=== PATIENT | male | born 1960 | race Caucasian/White ===

== ENCOUNTER 2018-11-07 14:53 | Emergency (ER) | payer OTHER ==
--- NOTE | 2018-11-07 15:00 | EDPHY ---
H & P Stated Complaint: SOB X 1 MONTH MILD 2/10 CHEST DISCOMFORT MID STERNAL TODAY Time Seen by Provider: 11/07/18 15:00 - Personal History Current Tetanus Diphtheria and Acellular Pertussis (TDAP): Yes - Medical/Surgical History Hx Asthma: No Hx Chronic Respiratory Disease: No Hx Diabetes: No Hx Cardiac Disease: No Hx Renal Disease: No Hx Cirrhosis: No Hx Alcoholism: No Hx HIV/AIDS: No Hx Splenectomy or Spleen Trauma: No Other PMH: Knee and hip surgery - Social History Smoking Status: Never smoked Constitutional: Initial Vital Signs Temperature (C) 36.7 C 11/07/18 14:56 Heart Rate 63 11/07/18 14:56 Respiratory Rate 18 11/07/18 14:56 Blood Pressure 140/86 H 11/07/18 14:56 O2 Sat (%) 92 11/07/18 14:56 O2 Delivery Mode Room Air Allergies/Adverse Reactions: No Known Allergies Allergy (Verified 11/07/18 14:54) Home Medications: Medication Instructions Recorded Lipitor 11/07/18 Medical Decision Making - Diagnostics Imaging Results: Imaging Impressions Chest X-Ray 11/07/18 15:07 Impression: No acute cardiopulmonary process. Imaging: I viewed and interpreted images myself ED Course/Re-evaluation: CHIEF COMPLAINT: Chest pain and shortness of breath HISTORY OF PRESENT ILLNESS: The patient is a 58 y/o male complaining of intermittent chest pain and shortness of breath today. For the last 20 years he has had similar episodes. The last episode of these symptoms occurred 1 month ago. These symptoms occur primarily before he goes to bed, but also occur while he is walking to work. Today he developed the "fleeting chest pain" that is briefly sharp in nature. Due to the new symptoms, he decided to present to the emergency department. No fever, headache, body aches, lightheadedness, heart palpitations, cough, abdominal pain, urinary or bowel complaints, numbness, paresthesias. He does see Dr. Manning, agricultural extension agent, and had a calcium score in September 2017 that was in the 10th percentile. Due to this calcium score he was placed on Lipitor prophylactically and is seeing him again in November 2015. REVIEW OF SYSTEMS: A comprehensive 10 system review of systems is otherwise negative aside from elements mentioned in the history of present illness and medical decision making. PHYSICAL EXAM: HR, BP, O2 Sat, RR. Temp noted General Appearance: Alert, well hydrated, appropriate, and non-toxic appearing. Head: Atraumatic without scalp tenderness or obvious injury Eyes: Pupils equal, round, reactive to light and accommodation, EOMI, no trauma , no injection. Ears: Clear bilaterally, no perforation, normal landmarks Nose: Atraumatic, no rhinorrhea, clear. Throat: There is no erythema or exudates, no lesions, normal tonsils, mucus membranes moist. Neck: Supple, 2+ carotid upstroke, nontender, no lymphadenopathy. Respiratory: No retractions, no distress, no wheezes, and no accessory muscle use. Lungs are clear to auscultation bilaterally. Cardiovascular: Regular rate and rhythm, no murmurs, rubs, or gallops. Bilateral carotid, radial, dorsalis pedis, and posterior tibial pulses intact. Good capillary refill all extremities. Gastrointestinal: Abdomen is soft, nontender, non-distended, no masses, no rebound, no guarding, no peritoneal signs. Musculoskeletal: Normal active ROM of all extremities, atraumatic. Neurological: Alert, appropriate, and interactive. The patient has normal DTRs and non-focal cranial nerves, motor, sensory, and cerebellar exam. Skin: No rashes, good turgor, no nodules on palpation. Past medical history: Denies Past surgical history: Hip and shoulder surgery Family history: Mother had angina in late 30's and pulmonary fibrosis, father had arteriole sclerosis and hear valves. Social history: Employed DIAGNOSTICS/PROCEDURES/CRITICAL CARE TIME: EKG: The 12 lead EKG was interpreted by myself as sinus rhythm with a rate of 62. See hard copy and/or "tracemaster" electronic copy for interpretation. Chest x-ray: Negative DIFFERENTIAL DIAGNOSIS: The differential diagnosis for the patient's chest pain included but was not limited to myocardial ischemia, pulmonary embolus, chest wall pain, pleural inflammation, and pulmonary infectious causes. The differential diagnosis for the patient's shortness of breath and hypoxemia included but was not limited to pneumonia, myocardial infarction, acute mountain sickness, high altitude pulmonary edema, congestive heart failure, and pulmonary embolus. MEDICAL DECISION MAKING: The patient is a 58 y/o male presenting with intermittent chest pain and shortness of breath today. The last episode of these symptoms occurred 1 month ago. These symptoms occur primarily before he goes to bed, but also occur while he is walking to work. He has a calcium score in the 10th percentile. He has a normal physical exam. Labs, chest x-ray, and EKG ordered. 1506: I reviewed patient's EKG as sinus rhythm with a rate of 62. 1535: Patient's chest x-ray and troponin are negative. His d-dimer is still pending. 1545: Reassessed patient and discussed normal laboratory and imaging findings. I have advised him to follow up with his agricultural extension agent. Return precautions provided; patient is comfortable with this plan. - Data Points Laboratory Results: Laboratory Results 11/07/18 15:06 11/07/18 15:06 11/07/18 11/07/18 11/07/18 15:11 15:06 15:06 WBC RBC Hgb Hct MCV MCH MCHC RDW Plt Count MPV Neut % (Auto) Lymph % (Auto) [place] % (Auto) Eos % (Auto) Baso % (Auto) Nucleat RBC Rel Count Absolute Neuts (auto) Absolute Lymphs (auto) Absolute Monos (auto) Absolute Eos (auto) Absolute Basos (auto) Absolute Nucleated RBC Immature Gran % Immature Gran # D-Dimer 0.31 ug/mLFEU ug/mLFEU (0.00-0.50) Sodium 140 mEq/L mEq/L (135-145) Potassium 4.2 mEq/L mEq/L (3.5-5.2) Chloride 105 mEq/L mEq/L (97-110) Carbon Dioxide 24 mEq/l mEq/l (22-31) Anion Gap 11 mEq/L mEq/L (6-14) BUN 19 mg/dL mg/dL (7-23) Creatinine 0.9 mg/dL mg/dL (0.7-1.3) Estimated GFR > 60 Glucose 114 mg/dL H mg/dL (70-100) Calcium 9.7 mg/dL mg/dL (8.5-10.4) POC Troponin I 0.00 ng/mL ng/mL (0.00-0.08) NT-Pro-B Natriuret Pep 24 pg/mL pg/mL (0-125) 11/07/18 15:06 WBC 7.12 10^3/uL 10^3/uL (3.80-9.50) RBC 4.92 10^6/uL 10^6/uL (4.40-6.38) Hgb 15.1 g/dL g/dL (13.7-17.5) Hct 44.4 % % (40.0-51.0) MCV 90.2 fL fL (81.5-99.8) MCH 30.7 pg pg (27.9-34.1) MCHC 34.0 g/dL g/dL (32.4-36.7) RDW 12.0 % % (11.5-15.2) Plt Count 270 10^3/uL 10^3/uL (150-400) MPV 9.6 fL fL (8.7-11.7) Neut % (Auto) 62.4 % % (39.3-74.2) Lymph % (Auto) 29.9 % % (15.0-45.0) [place] % (Auto) 4.5 % % (4.5-13.0) Eos % (Auto) 2.5 % % (0.6-7.6) Baso % (Auto) 0.6 % % (0.3-1.7) Nucleat RBC Rel Count 0.0 % % (0.0-0.2) Absolute Neuts (auto) 4.44 10^3/uL 10^3/uL (1.70-6.50) Absolute Lymphs (auto) 2.13 10^3/uL 10^3/uL (1.00-3.00) Absolute Monos (auto) 0.32 10^3/uL 10^3/uL (0.30-0.80) Absolute Eos (auto) 0.18 10^3/uL 10^3/uL (0.03-0.40) Absolute Basos (auto) 0.04 10^3/uL 10^3/uL (0.02-0.10) Absolute Nucleated RBC 0.00 10^3/uL 10^3/uL (0-0.01) Immature Gran % 0.1 % % (0.0-1.1) Immature Gran # 0.01 10^3/uL 10^3/uL (0.00-0.10) D-Dimer Sodium Potassium Chloride Carbon Dioxide Anion Gap BUN Creatinine Estimated GFR Glucose Calcium POC Troponin I NT-Pro-B Natriuret Pep Point of Care Test Results: Chemistry 11/07/18 15:11 POC Troponin I 0.00 ng/mL ng/mL (0.00-0.08) Departure - Departure Disposition: Home, Routine, Self-Care Clinical Impression: Chest pain Qualifiers: Chest pain type: unspecified Qualified Code(s): R07.9 - Chest pain, unspecified Dyspnea Qualifiers: Dyspnea type: unspecified Qualified Code(s): R06.00 - Dyspnea, unspecified Condition: Good Instructions: Chest Pain (ED), Dyspnea (ED) Additional Instructions: 1. Follow-up with your primary doctor within 72 hours. 2. Return to the Emergency Department for fever, chest pain, shortness of breath , increasing pain or other worsening of condition. 3. Follow up with a agricultural extension agent for further testing, as soon as possible, within one week. Referrals: Maria G Salamanca MD [Primary Care Provider] - As per Instructions Uriah Manning MD [Medical Doctor] - As per Instructions Report Scribed for: Monroe Ervin Report Scribed by: Mita Nails Date of Report: 11/07/18 Time of Report: 15:02
[2018-11-07 15:18] LABS: PLATELET COUNT 270 10^3/uL (150-400)
[2018-11-07 16:03] VITALS: BP 125/80
--- NOTE | 2018-11-07 21:34 | CPEKG ---
Test Reason : OPEN Blood Pressure : / mmHG Vent. Rate : 062 BPM Atrial Rate : 060 BPM P-R Int : 198 ms QRS Dur : 099 ms QT Int : 397 ms P-R-T Axes : 037 037 011 degrees QTc Int : 404 ms Sinus rhythm Minimal ST elevation, anterior leads Confirmed by Monroe Ervin ([id number] on 11/07/2018 9:34:18 PM Referred By: Monroe Ervin Confirmed By:Monroe Ervin
== END 2018-11-07 16:03 | disposition home or self-care (01) ==
DX: R07.9 Chest pain, unspecified (principal); R06.00 Dyspnea, unspecified
CPT/HCPCS: 84484-ER